=== PATIENT | female | born 1945 | race Caucasian/White ===

== ENCOUNTER 2017-10-24 16:09 | Emergency (ER) | payer MEDICARE, BC ==
[~2017-10-24] VITALS: Ht 162.6 cm; Wt 86.6 kg
[~2017-10-24 16:09] MED LIST: ASPI325T PO; CLAR10TA7 PO; ENOX40P SQ; HYDR-3580 PO; NASA0.0521; PROZ40CA PO; PSEU30TA PO; Z.0.COMMODE-3:1; Z.0.CPM
[2017-10-24 16:32] VITALS: BP 132/59; PULSE 84; RESP 16; TEMP 97.9; O2SAT 97
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
[2017-10-24 20:31] VITALS: BP 136/74
== END 2017-10-24 20:33 | disposition home or self-care (01) ==
LOC: PHEFT 16:09
DX: S09.90XA Unspecified injury of head, initial encounter (principal); S00.03XA Contusion of scalp, initial encounter; K21.9 Gastro-esophageal reflux disease without esophagitis; F32.9 Major depressive disorder, single episode, unspecified; Z85.828 Personal history of other malignant neoplasm of skin; Z87.39 Personal history of other diseases of the musculoskeletal system and connective tissue; Z86.69 Personal history of other diseases of the nervous system and sense organs; W22.09XA Striking against other stationary object, initial encounter
CPT/HCPCS: 70450; 99283